=== PATIENT | male | born 1980 | race Caucasian/White ===

== ENCOUNTER 2021-05-24 14:56 | Emergency (ER) | payer SELFPAY ==
[~2021-05-24] VITALS: Ht 192.4 cm; Wt 118.2 kg
[2021-05-24 15:58] LABS: CLARITY,URINE CLOUDY (Clear); GLUCOSE, URINE NEGATIVE (Neg); KETONES,URINE TRACE mg/dl (Neg); LEUKOCYTE ESTERASE ,URINE NEGATIVE (Neg); NITRITES, URINE NEGATIVE (Neg); OCCULT BLOOD,URINE LARGE (Neg); PH,URINE 5.5 (4.8-8.0); PROTEIN,URINE 100 mg/dl (Neg); UROBILINOGEN,URINE 0.2 E.U/dL (0.2-1.0)
[2021-05-24] MEDS ORDERED: normal saline 1000ML IV soln IVB ONE (16:20)
[2021-05-24 16:30] LABS: COLOR,URINE AMBER (Yellow); UA COLLECTION TYPE CLN CATCH MIDSTREAM
[2021-05-24] MEDS ORDERED: tamsulosin 0.4mg capsule PO STA (16:30)
[2021-05-24] MEDS ORDERED: ketorolac trometh. 30mg/ml inj. IV ONE (16:30)
[2021-05-24 16:33] LABS: RBC,URINE TNTC /HPF (0-2); SQUAMOUS EPITHELIAL CELL,UR FEW /LPF (FEW)
[2021-05-24 16:39] LABS: WBC,URINE 0-4 /HPF (0-4)
[2021-05-24 16:40] LABS: AMORPHOUS URATES 2+; BACTERIA,URINE FEW /HPF (Neg)
[2021-05-24 16:46] LABS: BASOPHILS # (AUTO) 0.1 X10'3 (0-0.2); BASOPHILS % (AUTO) 0.9 % (0-1); EOSINOPHILS # (AUTO) 0.3 X10'3 (0-0.9); EOSINOPHILS % (AUTO) 3.2 % (0-6); HEMATOCRIT 42.8 % (42.0-52.0); HEMOGLOBIN 14.7 g/dl (14.0-17.9); LYMPHOCYTES # (AUTO) 2.6 X10'3 (1.1-4.8); LYMPHOCYTES % (AUTO) 28.7 % (21-51); MEAN CORPUSCULAR HEMOGLOBIN 30.3 PG (27.0-31.0); MEAN CORPUSCULAR HGB CONC 34.4 g/dL (33.0-36.5); MEAN CORPUSCULAR VOLUME 88.2 FL (78-98); MEAN PLATELET VOLUME 9.6 FL (7.4-10.4); MONOCYTES # (AUTO) 0.7 X10'3 (0-0.9); MONOCYTES % (AUTO) 7.1 % (2-12); NEUTROPHILS # (AUTO) 5.5 X10'3 (1.8-7.7); NEUTROPHILS % (AUTO) 60.1 % (42-75); PLATELET COUNT 258 X10'3 (140-440); RED BLOOD COUNT 4.85 X10'6 (4.70-6.10); RED CELL DISTRIBUTION WIDTH 13.9 % (11.5-14.5); WHITE BLOOD COUNT 9.2 X10'3 (4.5-11.0)
[2021-05-24 17:08] LABS: ALANINE AMINOTRANSFERASE 28 U/L (12-78); ALBUMIN 3.8 G/DL (3.4-5.0); ALBUMIN/GLOBULIN RATIO 1.3 (1.1-1.5); ALKALINE PHOSPHATASE 61 IU/L (46-116); ANION GAP 9 (8-16); ASPARTATE AMINO TRANSFERASE 19 U/L (10-37); BILIRUBIN,TOTAL 0.2 MG/DL (0.1-1.0); BLOOD UREA NITROGEN 12 MG/DL (7-18); BUN/CREATININE RATIO 15.6 (5.4-32.0); CALCIUM 8.7 MG/DL (8.5-10.1); CHLORIDE 108 MMOL/L (99-107); CREATININE 0.77 MG/DL (0.60-1.10); GLUCOSE 89 MG/DL (70-104); SODIUM 145 MMOL/L (135-145); TOTAL CARBON DIOXIDE 27.6 MMOL/L (24-32); TOTAL PROTEIN 6.8 G/DL (6.4-8.2); eGFR > 90 ML/MIN
[2021-05-24 17:50] VITALS: BP 131/79
== END 2021-05-24 18:06 | disposition home or self-care (01) ==
LOC: ER 14:57
DX: N23 Unspecified renal colic (principal); R31.9 Hematuria, unspecified
CPT/HCPCS: 36415; 74176; 80053; 81001; 85025; 96374; 99284; J1885; J7030

== ENCOUNTER 2021-05-27 19:13 | Emergency (ER) | payer SELFPAY ==
[~2021-05-27] VITALS: Ht 193 cm; Wt 118.0 kg
[2021-05-27 19:42] LABS: BASOPHILS # (AUTO) 0.1 X10'3 (0-0.2); BASOPHILS % (AUTO) 0.5 % (0-1); EOSINOPHILS % (AUTO) 0.3 % (0-6); HEMATOCRIT 45.1 % (42.0-52.0); HEMOGLOBIN 15.4 g/dl (14.0-17.9); LYMPHOCYTES # (AUTO) 0.9 X10'3 (1.1-4.8); LYMPHOCYTES % (AUTO) 6.4 % (21-51); MEAN CORPUSCULAR HEMOGLOBIN 29.9 PG (27.0-31.0); MEAN CORPUSCULAR HGB CONC 34.2 g/dL (33.0-36.5); MEAN CORPUSCULAR VOLUME 87.5 FL (78-98); MEAN PLATELET VOLUME 9.7 FL (7.4-10.4); MONOCYTES # (AUTO) 0.7 X10'3 (0-0.9); MONOCYTES % (AUTO) 4.9 % (2-12); NEUTROPHILS % (AUTO) 87.9 % (42-75); PLATELET COUNT 254 X10'3 (140-440); RED BLOOD COUNT 5.16 X10'6 (4.70-6.10); RED CELL DISTRIBUTION WIDTH 13.8 % (11.5-14.5); WHITE BLOOD COUNT 13.7 X10'3 (4.5-11.0)
[2021-05-27] MEDS ORDERED: albuterol 2.5 MG/3 ML nebule NEB ONE (19:55)
[2021-05-27] MEDS ORDERED: magnesium 2GM in 50ml NS 50 ML IV ONE (19:55)
[2021-05-27] MEDS ORDERED: methylPREDNISolone sod succ 125mg/2ml vial IV ONE (19:55)
[2021-05-27] MEDS ORDERED: ipratropium/albuterol 3ml nebule NEB ONE (19:55)
[2021-05-27 20:00] LABS: ALANINE AMINOTRANSFERASE 27 U/L (12-78); ALBUMIN 4.2 G/DL (3.4-5.0); ALBUMIN/GLOBULIN RATIO 1.3 (1.1-1.5); ALKALINE PHOSPHATASE 67 IU/L (46-116); ANION GAP 9 (8-16); ASPARTATE AMINO TRANSFERASE 20 U/L (10-37); BILIRUBIN,TOTAL 0.4 MG/DL (0.1-1.0); BLOOD UREA NITROGEN 9 MG/DL (7-18); BUN/CREATININE RATIO 9.9 (5.4-32.0); CALCIUM 9.4 MG/DL (8.5-10.1); CHLORIDE 108 MMOL/L (99-107); CREATININE 0.91 MG/DL (0.60-1.10); GLUCOSE 101 MG/DL (70-104); POTASSIUM 3.8 MMOL/L (3.5-5.1); SODIUM 144 MMOL/L (135-145); TOTAL CARBON DIOXIDE 27.4 MMOL/L (24-32); TOTAL PROTEIN 7.5 G/DL (6.4-8.2); eGFR > 90 ML/MIN
--- NOTE | 2021-05-27 20:41 | NUR ---
Resting comfortably on gurney, no concerns at this time.
[2021-05-27] MEDS ORDERED: AZIT-83 PO (21:20)
[2021-05-27] MEDS ORDERED: PRED20TA PO (21:20)
[2021-05-27] MEDS ORDERED: ALBU8.5H17 IH (21:20)
[2021-05-27 22:02] VITALS: BP 155/83
== END 2021-05-27 22:04 | disposition home or self-care (01) ==
LOC: ER 19:14
DX: J45.901 Unspecified asthma with (acute) exacerbation (principal); F17.210 Nicotine dependence, cigarettes, uncomplicated; Z79.899 Other long term (current) drug therapy; Z87.442 Personal history of urinary calculi; Z20.822 Contact with and (suspected) exposure to COVID-19
CPT/HCPCS: 36415; 71045; 80053; 83880; 84145; 84484; 85025; 87635; 94640; 96365; 96366; 96375; 99285; C9803; J2930; J3475; 93005; 94760